=== PATIENT | female | born 1950 | race Caucasian/White ===

== ENCOUNTER 2017-11-19 09:09 | Outpatient (CLI) | payer MEDICARE, OTHER ==
[2017-11-19] MEDS ORDERED: Iopamidol 370 76% 100 ML VIAL ONE (12:49)
--- NOTE | 2017-11-19 12:56 | CT ---
CT ANGIOGRAM CHEST WITH AND WITHOUT CONTRAST: (PULMONARY VEIN MAPPING) DATE: 11/19/2017 HISTORY: A 67-year-old female for electrophysiology planning study. TECHNIQUE: Pre and post IV contrast injection of 100 mL of Isovue-370 scans performed through the heart, with th e field of view limited to the lungs around the heart. Coronal 3D MIP reconstructions. FINDINGS: No consolidation or mass identified in the visualized lung mae. Plate-like density in the lingula , consistent with subsegmental atelectasis or scar. No pleural effusion. Pulmonary veins: Long left common trunk. In addition to superior and inferior right main pulmonary veins, there is a right middle pulmonary vein. No coronary artery atherosclerotic calcification. No cardiomegaly. No ASD or VSD. No thoracic aortic aneurysm or dissection. No thrombus in the left atrial appendage. Bilateral breast implants with heavily calcified rims. No significant mediastinal or hilar lymphaden opathy. IMPRESSION: Pulmonary vein anatomy as described above, including right middle pulmonary vein and long left common trunk. POS: ALMITA
== END 2017-11-19 09:10 | disposition home or self-care (01) ==
LOC: CT 09:09
PROVIDERS: ATTEND Internal Medicine Cardiovascular Disease
DX: I48.91 Unspecified atrial fibrillation (principal)
CPT/HCPCS: 71275; 82565

== ENCOUNTER 2017-11-20 11:45 | Observation (INO) | payer MEDICARE, OTHER ==
[2017-11-20] MEDS ORDERED: Heparin 10,000 UNITS/1 ML VIAL ONE (12:36)
[2017-11-20] MEDS ORDERED: Lidocaine 1% (PF) 30 ML VIAL ONE (12:41)
[2017-11-20 12:46] LABS: Hemoglobin 15.7 g/dL (12.0-16.0); Mean Corpuscular HGB CONC 34.1 g/dL (32.0-36.0); Mean Corpuscular Hemoglobin 32.9 pg (27.0-31.0); Mean Corpuscular Volume 96.3 fl (81.0-99.0); Mean Platelet Volume 7.8 fL (7.4-10.4); Platelet Count 138 thou/uL (130-400); RBC Distribution Width 11.6 % (11.5-14.5); Red Blood Cell (RBC) Count 4.78 mill/uL (4.20-5.40); White Blood Cell (WBC) Count 7.4 thou/uL (4.8-10.8)
[2017-11-20] MEDS ORDERED: Fentanyl 100 MCG/2 ML VIAL ONE (12:46)
[2017-11-20 12:53] LABS: Anion Gap 16 mmol/L (10-20); BUN (Urea Nitrogen) 20 mg/dL (9.8-20.1); Calc. Creatinine Clearance 68 mL/min (70-130); Calcium 9.9 mg/dL (7.8-10.44); Carbon Dioxide 21 mmol/L (23-31); Chloride 106 mmol/L (98-107); Estimated GFR-MDRD 59; Glucose 86 mg/dL (80-115); INR-International Normal Ratio 1.1; PTT 27.8 SEC (22.9-36.1); Potassium 4.2 mmol/L (3.5-5.1); Prothrombin Time 14.3 SEC (12.0-14.7); Sodium 139 mmol/L (136-145)
[2017-11-20 13:08] LABS: Band 2 % (5-11); Lymphocytes 30 % (21-51); MDiff Complete? YES; Monocytes 7 % (0-10); Neutrophil 58 % (42-75); PLT Morphology Comment Appears Adequate; RBC Morphology Normal; Reactive Lymphocytes 3 % (0-10)
[2017-11-20] MEDS ORDERED: Isoproterenol 0.2 MG/1 ML AMP ONE (13:48)
[2017-11-20] MEDS ORDERED: PROPOFOL 200 MG/20 ML VIAL ONE (14:02)
[2017-11-20] MEDS ORDERED: Lidocaine 1% PF 5 ML VIAL ONE (14:02)
[2017-11-20] MEDS ORDERED: Succinylcholine Chloride 20 MG/ML 10 ml SYRINGE FS ONE (14:02)
[2017-11-20] MEDS ORDERED: PHENYLEPHRINE-NS 100 MCG/ML 10 ML SYRINGE ONE (14:02)
[2017-11-20] MEDS ORDERED: Heparin 30,000 units/30 ml VIAL ONE (14:02)
[2017-11-20] MEDS ORDERED: ePHEDrine/0.9% NaCl/PF SYRINGE 50 mg/10 ml ONE (14:02)
[2017-11-20] MEDS ORDERED: Protamine Sulfate 50 MG/5 ML VIAL ONE (14:51)
[2017-11-20] MEDS ORDERED: Furosemide 40 MG/4 ML VIAL ONE (16:07)
[2017-11-20] MEDS ORDERED: Promethazine HCl 25 MG/ML VIAL IM PRN (16:41)
[2017-11-20] MEDS ORDERED: Ondansetron HCl/PF 4 MG/2 ML Vial IVP PRN ×2 (16:41→16:57)
[2017-11-20] MEDS ORDERED: Promethazine HCl 25 MG/ML VIAL SLOW IVP PRN (16:41)
[2017-11-20] MEDS ORDERED: Acetaminophen 325 MG TAB PO PRN (16:57)
[2017-11-20] MEDS ORDERED: Bisacodyl 5 MG TAB PO PRN (16:57)
[2017-11-20] MEDS ORDERED: Mag-Al 1200 mg/1200 mg/30 ML UDCUP PO PRN (16:57)
[2017-11-20] MEDS ORDERED: diphenhydrAMINE 25 MG CAP PO PRN (16:57)
[2017-11-20] MEDS ORDERED: Nitroglycerin 0.4 MG TAB (25 Tab Bottle) SL PRN (16:57)
[2017-11-20] MEDS ORDERED: Bisacodyl 10 MG SUPP PR PRN (16:57)
[2017-11-20] MEDS ORDERED: Temazepam 15 MG CAP PO PRN (16:57)
[2017-11-20] MEDS ORDERED: Ondansetron HCl/PF 4 MG/2 ML Vial ONE (17:22)
[2017-11-20] MEDS ORDERED: Promethazine HCl 25 MG/ML VIAL ONE (17:32)
[2017-11-20 18:15] VITALS: BMI 26.2
[2017-11-20] MEDS: Dronedarone HCl 400 MG TAB PO SCH (20:50)
[2017-11-20] MEDS ORDERED: Rivaroxaban 10 MG TAB PO SCH (21:00)
--- NOTE | 2017-11-20 21:07 | OP ---
DATE OF CONSULTATION: 11/20/2017 PROCEDURE: Comprehensive EP testing with 3D mapping and ablation of atrial fibrillation. CLINICAL INDICATION: Drug refractory and atrial fibrillation. GRADUATE TEACHING ASSISTANT: Rylan Shelton M.D. ASA CLASSIFICATION: IV. ANESTHESIA: General endotracheal anesthesia. Total heparin given 20,000 units. Total protamine giv en 40 mg. ADDITIONAL CARDIAC MEDICATIONS: Isoproterenol 10 mcg per minute infusion. ESTIMATED BLOOD LOSS: Less than 5 mL TOTAL FLUOROSCOPY TIME: Zero. TOTAL RF: 75 minutes. METHODS: After informed consent was obtained, the patient was taken to EP lab in fasting state. Bot h groins were prepped and draped using ultrasound guidance. The right and left femoral veins were ac cessed and wires were inserted into the central venous system. The wires used to place an 11 and 8-F rench sheath in the left groin and two 8-[place] sheath in right groin. The all 8-[place] sheath were then replaced by long sheaths for catheter stability. A 10-[place] echo probe was placed in the left groin advanced of the right atrium and the right ventricle for imaging. A circular ablation catheter placed in right femoral vein advanced up to the right atrium. 3D map was obtained of the right atriu m and the coronary sinus. A 20-pole catheter placed in the left groin and advanced over the coronary sinus. A transseptal catheterization was then performed using biplane imaging through the [employer] system and ultrasound guidance. A 3D map was obtained in the left atrium and very wide antral isol ation of all four pulmonary veins were performed as well as a distal CS isolation, left atrial append age isolation, and roof of the left atrium. The patient then was in an incessant atrial arrhythmia f rom the right atrial appendage. The circular catheter was withdrawn to the right atrium and ablation around the right atrial appendage was performed. This delayed conduction into the appendage, but di d not completely isolated. At the conclusion of the procedure, catheters were withdrawn, sheaths wer e pulled, hemostasis was achieved with a collagen closure. RESULTS: 1. Baseline intervals, HV interval 59 milliseconds. 2. Atrial function. The patient was in sinus rhythm at the beginning of the procedure; however, she went into atrial fibrillation with mechanical manipulation with the catheters. This became incessan t and required a very wide isolation of all four pulmonary veins posterior wall of the left atrium, t he roof the left atrium, distal CS and the left atrial appendage along with debulking of the entire t issue anterior to the otto terminalis and delayed conduction into the right atrial appendage. 3. Ablation detail with total of 75 minutes of RF were delivered with a [employer] open irriga angel ablation catheter. IMPRESSION: 1. Complete isolation of the left atrium including left atrial appendage for treatment of atrial fib rillation. 2. Debulking and extensive ablation of the right atrial appendage and the otto terminalis for delroy tment of atrial fibrillation. RECOMMENDATION: 1. Initiate amiodarone therapy during the healing process. 2. A 23-hour observation.
[2017-11-21] MEDS ORDERED: Colchicine 0.6 MG TAB PO SCH ×2 (00:45→09:00)
[2017-11-21] MEDS ORDERED: Ibuprofen 200 MG TAB PO SCH (00:45)
[2017-11-21] MEDS: Ibuprofen 200 MG TAB PO SCH ×2 (07:07→12:42)
[2017-11-21] MEDS: Dronedarone HCl 400 MG TAB PO SCH (08:25)
[2017-11-21] MEDS ORDERED: Calcium Carbonate + Vit D 1 TAB PO SCH (09:00)
[2017-11-21] MEDS ORDERED: Aspirin 81 mg Enteric Coated Tablet PO SCH (09:00)
[2017-11-21] MEDS ORDERED: Multivit, Therapeutic 1 TAB PO SCH (09:00)
[2017-11-21] MEDS ORDERED: Sodium Chloride 0.9% 250 ML IVPB SCH (10:15)
[2017-11-21 16:06] VITALS: TEMP 98.4
[2017-11-21 16:54] VITALS: BP 104/59
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
[2017-11-22] MEDS ORDERED: Cyanocobalamin (Vitamin B-12) 1,000 MCG TAB PO SCH (09:00)
[2017-11-22] MEDS ORDERED: Magnesium Oxide 250 MG TAB PO SCH (09:00)
--- NOTE | 2017-12-03 22:52 | EKG ---
Test Reason : PREOP Blood Pressure : / mmHG Vent. Rate : 066 BPM Atrial Rate : 066 BPM P-R Int : 160 ms QRS Dur : 080 ms QT Int : 390 ms P-R-T Axes : 064 007 034 degrees QTc Int : 408 ms Normal sinus rhythm with sinus arrhythmia Normal ECG When compared with ECG of 20-JUN-2014 15:54, QT has shortened Confirmed by Anita SMITH ([id number]) on 12/03/2017 10:52:03 PM Referred By: RAMY Confirmed By:Anita SMITH
--- NOTE | 2017-12-03 22:54 | EKG ---
Test Reason : STAT Blood Pressure : / mmHG Vent. Rate : 085 BPM Atrial Rate : 085 BPM P-R Int : 134 ms QRS Dur : 088 ms QT Int : 400 ms P-R-T Axes : 030 010 008 degrees QTc Int : 476 ms Normal sinus rhythm Normal ECG When compared with ECG of 20-NOV-2017 12:38, (Unconfirmed) Nonspecific T wave abnormality now evident in Anterior leads QT has lengthened Confirmed by Anita SMITH ([id number]) on 12/03/2017 10:54:12 PM Referred By: RAMY Confirmed By:Anita SMITH
--- NOTE | 2017-12-03 22:57 | EKG ---
Test Reason : STAT Blood Pressure : / mmHG Vent. Rate : 087 BPM Atrial Rate : 087 BPM P-R Int : 124 ms QRS Dur : 078 ms QT Int : 348 ms P-R-T Axes : -25 029 044 degrees QTc Int : 418 ms Sinus rhythm with Premature atrial complexes T wave abnormality, consider anterolateral ischemia Abnormal ECG When compared with ECG of 20-NOV-2017 16:59, (Unconfirmed) Premature atrial complexes are now Present Nonspecific T wave abnormality no longer evident in Inferior leads T wave inversion now evident in Anterior leads QT has shortened Confirmed by Anita SMITH ([id number]) on 12/03/2017 10:56:57 PM Referred By: RAMY Confirmed By:Anita SMITH
--- NOTE | 2017-12-03 22:58 | EKG ---
Test Reason : Blood Pressure : / mmHG Vent. Rate : 083 BPM Atrial Rate : 083 BPM P-R Int : 134 ms QRS Dur : 080 ms QT Int : 384 ms P-R-T Axes : 090 014 028 degrees QTc Int : 451 ms Sinus rhythm with Premature supraventricular complexes ST elevation, consider early repolarization Borderline ECG When compared with ECG of 21-NOV-2017 00:18, (Unconfirmed) ST elevation now present in Inferior leads ST elevation has replaced ST depression in Anterior leads T wave inversion no longer evident in Anterior leads Confirmed by Anita SMITH ([id number]) on 12/03/2017 10:58:36 PM Referred By: RAMY Confirmed By:Anita SMITH
== END 2017-11-21 17:30 | disposition home or self-care (01) ==
LOC: CCL 11:45 → 2SW 16:45 → CCL 19:20
PROVIDERS: ADMIT Internal Medicine Cardiovascular Disease; ATTEND Internal Medicine Cardiovascular Disease
PROC: 02583ZZ Destruction of Conduction Mechanism, Percutaneous Approach (ICD-10-PCS; principal; 2017-11-20)
DX: I48.1 Persistent atrial fibrillation (principal); Z88.5 Allergy status to narcotic agent; Z88.8 Allergy status to other drugs, medicaments and biological substances
CPT/HCPCS: 76942; 80048; 85025; 85347 ×2; 85610; 85730; 92960; 93005 ×3; 93306; 93613; 93623; 93656; 93662; 96374 ×3; C1731; C1732 ×3; C1759; C1769; G0378; 93010; J0282; J1644; J1940; J2001; J2405; J2550; J2704; J2720; J3010

== ENCOUNTER 2019-07-30 19:07 | Observation (INO) | payer MEDICARE, OTHER ==
[~2019-07-30 19:07] MED LIST: Iopamidol-370 76% 500 ML 1 ML ONE
[2019-07-30 21:40] LABS: Anion Gap 12 mmol/L (10-20); BUN (Urea Nitrogen) 13 mg/dL (9.8-20.1); Calc. Creatinine Clearance 0 mL/min (70-130); Calcium 9.6 mg/dL (7.8-10.44); Carbon Dioxide 28 mmol/L (23-31); Chloride 106 mmol/L (98-107); Estimated GFR-MDRD 68; Glucose 97 mg/dL (80-115); Potassium 3.6 mmol/L (3.5-5.1); Sodium 142 mmol/L (136-145)
[2019-07-30 21:47] LABS: #Eosinphils 0.3 thou/uL (0.0-0.7); #Lymphocytes 1.8 thou/uL (1.20-3.40); #Monocytes 0.8 thou/uL (0.11-0.59); #Neutrophils 4.9 thou/uL (1.40-6.50); %Basophils 0.5 % (0.0-1.0); %Eosinophils 3.2 % (0.0-10.0); %Lymphocytes 23.6 % (21.0-51.0); %Monocytes 9.7 % (0.0-10.0); %Neutrophils 62.9 % (42.0-75.0); Mean Corpuscular HGB CONC 33.3 g/dL (32.0-36.0); Mean Corpuscular Hemoglobin 32.2 pg (27.0-31.0); Mean Corpuscular Volume 96.6 fL (78.0-98.0); Mean Platelet Volume 7.8 fL (7.4-10.4); Platelet Count 131 thou/uL (130-400); RBC Distribution Width 11.2 % (11.5-14.5); Red Blood Cell (RBC) Count 4.36 mill/uL (4.20-5.40); White Blood Cell (WBC) Count 7.8 thou/uL (4.8-10.8)
--- NOTE | 2019-07-30 22:17 | CT ---
CT arteriogram chest with IV contrast and 3-D imaging HISTORY: Chest pain. Dyspnea. COMPARISON: 11/19/2017. FINDINGS: There is good contrast opacification of the pulmonary arteries and thoracic aorta with norm al branching of the great vessels at the aortic arch. Lungs are well-inflated. No pleural fluid, pneumothorax, or mediastinal adenopathy. Bilateral calcified breast implants. Within the partially visualized upper abdomen, hyperdense cysts and small stone at the left kidney are evident. IMPRESSION: No CT evidence of pulmonary embolus.
[2019-07-30] MEDS ORDERED: Metoprolol Tartrate 5 MG/5 ML VIAL ONE (23:01)
[2019-07-31 00:46] LABS: Troponin I Less than 0.010 ng/mL (< 0.028)
[2019-07-31] MEDS ORDERED: Ondansetron ODT 4 MG TAB SL PRN (01:31)
[2019-07-31] MEDS ORDERED: Ondansetron PF 4 MG/2 ML Vial IVP PRN (01:31)
[2019-07-31 02:05] VITALS: BMI 24.3
[2019-07-31] MEDS: Acetaminophen 325 MG TAB PO PRN ×2 (02:26→08:37)
[2019-07-31 04:15] LABS: #Eosinphils 0.2 thou/uL (0.0-0.7); #Lymphocytes 1.9 thou/uL (1.20-3.40); #Monocytes 0.6 thou/uL (0.11-0.59); #Neutrophils 3.4 thou/uL (1.40-6.50); %Basophils 0.7 % (0.0-1.0); %Eosinophils 3.8 % (0.0-10.0); %Lymphocytes 30.2 % (21.0-51.0); %Monocytes 10.1 % (0.0-10.0); %Neutrophils 55.2 % (42.0-75.0); Mean Corpuscular HGB CONC 33.9 g/dL (32.0-36.0); Mean Corpuscular Hemoglobin 32.6 pg (27.0-31.0); Mean Corpuscular Volume 96.1 fL (78.0-98.0); Mean Platelet Volume 8.2 fL (7.4-10.4); Platelet Count 133 thou/uL (130-400); RBC Distribution Width 11.2 % (11.5-14.5); Red Blood Cell (RBC) Count 4.28 mill/uL (4.20-5.40); White Blood Cell (WBC) Count 6.2 thou/uL (4.8-10.8)
[2019-07-31 04:29] LABS: Anion Gap 10 mmol/L (10-20); BUN (Urea Nitrogen) 13 mg/dL (9.8-20.1); Calc. Creatinine Clearance 78 mL/min (70-130); Calcium 9.2 mg/dL (7.8-10.44); Carbon Dioxide 25 mmol/L (23-31); Chloride 107 mmol/L (98-107); Estimated GFR-MDRD 79; Glucose 93 mg/dL (80-115); Potassium 3.7 mmol/L (3.5-5.1); Sodium 138 mmol/L (136-145)
[2019-07-31 04:35] LABS: Troponin I 0.011 ng/mL (< 0.028)
[2019-07-31] MEDS ORDERED: Calcium Carbonate + Vit D 1 TAB PO SCH (09:00)
[2019-07-31] MEDS ORDERED: Apixaban 5 MG TAB PO SCH (09:00)
[2019-07-31] MEDS ORDERED: Non-Formulary Item 1 EACH (Multivit-Min/Iron/Folic/Lutein [Multivitamin Women 50 Plus Tab PO SCH (09:00)
[2019-07-31] MEDS ORDERED: Aspirin 81 mg Enteric Coated Tablet PO SCH (09:00)
[2019-07-31] MEDS ORDERED: Multivitamin W/ Minerals 1 TAB PO SCH (09:00)
[2019-07-31] MEDS ORDERED: Magnesium Oxide 400 MG TAB PO SCH (09:00)
--- NOTE | 2019-07-31 12:19 | CON ---
DATE OF CONSULTATION: 07/31/2019 PRIMARY ENVIRONMENTAL PROTECTION ECONOMIST: Fadi Mcbride MD REASON FOR CONSULT: Tachycardia. HISTORY OF PRESENT ILLNESS: Ms. Guillaume is a patient, who has history of atrial fibrillation ablation, also atrial tachycardia. She recently was taken off flecainide and diltiazem dose was reduced. She re-presented with recurrent palpitations with vague chest discomfort. She is pain-free now. PHYSICAL EXAMINATION: VITAL SIGNS: Blood pressure 137/76, pulse 70. LUNGS: Clear. CARDIAC: Normal S1. Normal S2. ABDOMEN: Soft and nontender. ASSESSMENT: 1. History of atrial fibrillation, previous ablation. 2. Recurrent atrial arrhythmias, off flecainide. PLAN: 1. Resume flecainide. 2. Resume diltiazem. 3. Stress test to be done. If it looks okay, she can go home to follow up as an outpatient with Dr. Mcbride and Dr. Niño. Job ID: [id number]
--- NOTE | 2019-07-31 12:20 | HP ---
CHIEF COMPLAINT: Tiredness and generalized weakness. HISTORY OF PRESENT ILLNESS: The patient is a 68-year-old female, who had some episodes of fast heart beats in the last few days, and she felt very tired, and apparently, she went to her primary care physician, Jennifer Mayorga in [facility], and she had EKG done which showed SVT. The patient was sent to the emergency room for further evaluation. She noticed also quite significant shortness of breath during those episodes when her heart is beating fast. She had some chest pressure during those episodes, but not any obvious chest pain. There was no any nausea or vomiting. There was no any fever or chills. She has a history of atrial fibrillation and ablation done by Dr. Shelton in this hospital. She is well established with Dr. Mcbride, her siderographist and Dr. Niño, her scratcher tender. Apparently, her flecainide was stopped in the last couple of weeks, and her Cardizem dose was decreased from [address] Mcbride. The patient is getting admitted to the hospital for further diagnostic workup and management of her problem. PAST MEDICAL HISTORY: 1. Endometrial cancer. 2. Osteoarthritis. 3. Atrial fibrillation, status post ablation. 4. Left foot cellulitis. PAST SURGICAL HISTORY: 1. Hernia repair. 2. Breast augmentation. 3. Lumbar laminectomy. 4. Hysterectomy. ALLERGIES: 1. CITALOPRAM. 2. HYDROCODONE. 3. MELOXICAM. 4. METOPROLOL. 5. TRAMADOL. THOSE ARE LISTED ALLERGIES, BUT THIS SOUNDS MORE LIKE SIDE EFFECTS OF MEDICATIONS SINCE SHE DEVELOPS HEADACHE AFTER TAKING THEM. CURRENT MEDICATIONS: 1. Aspirin 81 mg once a day. 2. Calcium carbonate 600 mg tablets. The dose is unclear. 3. Vitamin D3 of 10,000 units once a day. 4. Diltiazem extended-release 120 mg once a day. 5. Multivitamin 1 a day. 6. Apixaban 5 mg twice a day. FAMILY HISTORY: Father had throat cancer, and he when he was 69. Mother was 81, and she had complication of Parkinson disease. SOCIAL HISTORY: She denies any cigarette smoking. She drinks socially and does not use any illicit drugs. Surrogate decision maker is Judit Briseno. She has power of erisa attorney over her. REVIEW OF SYSTEMS: Fourteen systems were reviewed, and they were negative except for those symptoms mentioned in HPI. PHYSICAL EXAMINATION: VITAL SIGNS: Her blood pressure is 129/74, temperature is 97.6, respirations 16, pulse 68, O2 saturation is 95% on room air. GENERAL: She is not in any distress during my visit. HEENT: Her head is atraumatic and normocephalic. Eyes are PERRLA. Sclerae are nonicteric. Oral mucosa is moist. NECK: Supple. LUNGS: Clear. HEART: S1 and S2 normal. No S3. No S4. No any murmur. ABDOMEN: Soft, nontender, and nondistended. EXTREMITIES: No clubbing, cyanosis, or edema. NEUROLOGIC: She is alert and oriented x4. There are no any motor or sensory deficits present. Cranial nerves are intact. LABORATORY DATA: Showed white count of 6.2, hemoglobin 14.0, hematocrit 41.1, platelet count is 133,000. Normal chemistry. Two sets of troponin I within normal limits. BNP 76.7. Glucose is 93. IMAGING STUDIES: CTA of the thorax, personally reviewed by me, showed cysts and small stone at the left kidney and bilateral breast implants. Electrocardiogram, personally reviewed by me, showed questionable SVT with ventricular rate of 129 beats per minute. No ischemic changes. IMPRESSION: 1. Paroxysmal tachycardia, unclear whether this is supraventricular tachycardia. 2. Hypertension. 3. History of atrial fibrillation. 4. History of endometrial cancer. 5. Osteoarthritis. PLAN: Admission to observation unit. Condition is fair. Activity is bedrest and bathroom privileges. IV Hep-Lock. Heart-healthy diet. Cardiology consultation with Dr. Maldonado. DVT prophylaxis with SCDs. Continue home medications which include Xarelto, so we are not going to use Lovenox for DVT prophylaxis. Since she had recently echocardiogram done in Dr. Mcbride's office, I am not going to order that. Job ID: [id number]
[2019-07-31] MEDS ORDERED: ADENOSINE 60 MG/20 ML VIAL ONE (14:24)
[2019-07-31] MEDS ORDERED: Flecainide 50 MG TAB PO SCH ×2 (15:00→21:00)
--- NOTE | 2019-07-31 16:09 | NM ---
Radionucleotide stress and rest myocardial perfusion scan with CT attenuation correction and SPECT im aging Left ventricular wall motion evaluation and ejection fraction HISTORY: Chest pain. FINDINGS: Adenosine protocol. Heterogeneous uptake of radiotracer within the left ventricular myocardium. Small amount of breast at tenuation at the anterior wall. No focal perfusion defect or reversibility reliably demonstrated. QGS analysis of gated SPECT images shows no focal wall motion abnormalities. Ejection fraction calcul ated at 72%. IMPRESSION: Normal myocardial perfusion scan. Normal LVEF.
[2019-07-31 16:13] VITALS: BP 129/73; TEMP 97.6
--- NOTE | 2019-08-02 10:59 | DIS ---
DATE OF ADMISSION: 07/31/2019 DATE OF DISCHARGE: 07/31/2019 FINAL DIAGNOSES AT THE TIME OF DISCHARGE: 1. Recurrent atrial arrhythmias, off flecainide. 2. History of atrial fibrillation with history of previous ablation. 3. Hypertension. 4. History of endometrial cancer. 5. Osteoarthritis. CONSULTANTS: Dr. Carolyn Maldonado, Cardiology Service. HOSPITAL COURSE: The patient is a 68-year-old female who has significant cardiac past medical history for atrial fibrillation and ablation and recently, her loan funder lowered a Cardizem dose and stopped her flecainide, and she started having some palpitations and fast heartbeats along with some shortness of breath. She presented to her primary care physician office where she was found to be in SVT. She was sent to the emergency room for further evaluation. During emergency room visit, her white count was 6.2, hemoglobin was 14.0, hematocrit 41.1, and platelet count 133,000. Chemistry was normal. Two sets of troponins I were within normal limits. BNP was 76.7, and glucose was 93. Her electrocardiogram showed questionable SVT with ventricular rate of 129 beats per minute without any ischemic changes. The patient got admitted to observation unit. She was seen by Dr. Maldonado for Cardiology consultation who recommended a stress test, which was done, and it did not show any abnormalities. Her LVEF was estimated at 72%. There were no any wall motion abnormalities or ischemic areas of concern. She was started on flecainide, and she was cleared by loan funder to be released home. Her vital signs; blood pressure is 129/73, pulse is 73, temperature is 97.6, respirations 17, and O2 saturation is 97% on room air. She was seen and examined before she is discharged. She feels good. DISPOSITION: Home. ACTIVITY: As tolerated. DIET: Low-salt diet. MEDICATIONS: At the time of discharge; 1. Diltiazem 60 mg twice a day. 2. Eliquis 5 mg twice a day. 3. Flecainide 50 mg twice a day. 4. Aspirin 81 mg once a day. 5. Multivitamin once a day. 6. Magnesium 800 mg once a day. 7. Calcium carbonate/vitamin D3 two tablets every morning. FOLLOWUP: She is going to follow up with Dr. Mcbride, her primary loan funder, and Dr. Niño , her rebrander. She will call those two offices and to set up followup appointment. Time spent on this discharge is less than 30 minutes. Job ID: [id number]
== END 2019-07-31 18:32 | disposition home or self-care (01) ==
LOC: ERS 19:07 → 2SW 07-31 01:07
PROVIDERS: ADMIT Internal Medicine; ATTEND Internal Medicine
DX: I47.9 Paroxysmal tachycardia, unspecified (principal); I10 Essential (primary) hypertension; R53.1 Weakness; R06.02 Shortness of breath; M19.90 Unspecified osteoarthritis, unspecified site; I48.91 Unspecified atrial fibrillation; Z79.01 Long term (current) use of anticoagulants; Z79.82 Long term (current) use of aspirin; Z79.899 Other long term (current) drug therapy; Z88.5 Allergy status to narcotic agent; Z88.6 Allergy status to analgesic agent; Z88.8 Allergy status to other drugs, medicaments and biological substances
CPT/HCPCS: 71275; 78452; 80048 ×2; 83735; 83880; 84484 ×3; 85025 ×2; 93005; 93017; 96374; 99285; A9500; G0378 ×2; 36415; J0153; Q9967

== ENCOUNTER 2020-11-21 17:30 | Outpatient (CLI) | payer MEDICARE, OTHER | END 2020-11-21 17:31 | disposition home or self-care (01) | LOC: SLEEPLAB 17:30 | PROVIDERS: ATTEND Family Medicine | DX: G47.33 Obstructive sleep apnea (adult) (pediatric) (principal); R09.89 Other specified symptoms and signs involving the circulatory and respiratory systems; R51.9 Headache, unspecified; R06.83 Snoring; I48.91 Unspecified atrial fibrillation; I10 Essential (primary) hypertension | CPT/HCPCS: 95806 ==

== ENCOUNTER 2021-01-31 08:10 | Day surgery (SDC) | payer MEDICARE, OTHER ==
[2021-01-30 08:40] VITALS: BMI 26.6
[2021-01-31 09:04] LABS: Hemoglobin 15.4 g/dL (12.0-16.0); Mean Corpuscular HGB CONC 34.6 g/dL (32.0-36.0); Mean Corpuscular Hemoglobin 33.9 pg (27.0-31.0); Mean Platelet Volume 8.2 fL (7.4-10.4); Platelet Count 152 thou/uL (130-400); RBC Distribution Width 11.5 % (11.5-14.5); Red Blood Cell (RBC) Count 4.54 mill/uL (4.20-5.40); White Blood Cell (WBC) Count 7.3 thou/uL (4.8-10.8)
[2021-01-31 09:15] LABS: INR-International Normal Ratio 1.3; PTT 32.3 sec (22.9-36.1); Prothrombin Time 16.4 sec (12.0-14.7)
[2021-01-31 09:23] LABS: Anion Gap 11 mmol/L (10-20); BUN (Urea Nitrogen) 17 mg/dL (9.8-20.1); Calc. Creatinine Clearance 70 mL/min (70-130); Calcium 9.8 mg/dL (7.8-10.44); Carbon Dioxide 30 mmol/L (23-31); Chloride 105 mmol/L (98-107); Glucose 101 mg/dL (83-110); Potassium 4.3 mmol/L (3.5-5.1); Sodium 142 mmol/L (136-145)
[2021-01-31] MEDS ORDERED: PROPOFOL 20 ML ONE (09:25)
== END 2021-01-31 11:35 | disposition home or self-care (01) ==
LOC: CCL 08:10
PROVIDERS: ATTEND Internal Medicine Cardiovascular Disease
PROC: 5A2204Z Restoration of Cardiac Rhythm, Single (ICD-10-PCS; principal; 2021-01-31)
DX: I48.4 Atypical atrial flutter (principal); I48.19 Other persistent atrial fibrillation; I10 Essential (primary) hypertension; Z79.01 Long term (current) use of anticoagulants; Z79.82 Long term (current) use of aspirin; Z79.899 Other long term (current) drug therapy; Z88.1 Allergy status to other antibiotic agents; Z88.5 Allergy status to narcotic agent; Z88.8 Allergy status to other drugs, medicaments and biological substances
CPT/HCPCS: 80048; 85027; 85610; 85730; 92960; 93005; 93010; J2704

== ENCOUNTER 2021-04-11 06:12 | Observation (INO) | payer MEDICARE, OTHER ==
[2021-04-11] MEDS ORDERED: Heparin 10,000 UNITS/ 10 ML VIAL ONE (06:32)
[2021-04-11] MEDS ORDERED: Isoproterenol 0.2 MG/1 ML AMP ONE (06:33)
[2021-04-11] MEDS ORDERED: SUGAMMADEX SODIUM 200 MG/2 ML VIAL ONE (07:14)
[2021-04-11] MEDS ORDERED: Fentanyl 100 MCG/2 ML VIAL ONE ×2 (07:14→12:29)
[2021-04-11] MEDS ORDERED: diphenhydrAMINE 50 MG/ML VIAL ONE (07:30)
[2021-04-11] MEDS ORDERED: PROPOFOL 200 MG/20 ML VIAL ONE (07:30)
[2021-04-11] MEDS ORDERED: Dexamethasone 20 MG/5 ML VIAL ONE (07:30)
[2021-04-11] MEDS ORDERED: PHENYLEPHRINE-NS 100 MCG/ML 10 ML SYRINGE ONE ×2 (07:30→11:06)
[2021-04-11] MEDS ORDERED: Rocuronium Bromide 10 MG/ML (10ML VIAL) ONE (07:30)
[2021-04-11] MEDS ORDERED: Ondansetron PF 4 MG/2 ML Vial ONE (07:30)
[2021-04-11] MEDS ORDERED: Glycopyrrolate 0.2 MG/ML 5 ML SYRINGE ONE (07:30)
[2021-04-11] MEDS ORDERED: Lidocaine 1% PF 5 ML VIAL ONE (07:30)
[2021-04-11] MEDS ORDERED: ePHEDrine 50 MG/ML VIAL ONE (07:30)
[2021-04-11] MEDS ORDERED: Ondansetron HCl/PF 4 MG/2 ML Vial IVP PRN (08:13)
[2021-04-11] MEDS ORDERED: Promethazine HCl 25 MG/ML VIAL IM PRN (08:13)
[2021-04-11] MEDS ORDERED: Promethazine HCl 25 MG/ML VIAL IVPB PRN (08:13)
[2021-04-11] MEDS ORDERED: Meperidine HCl/PF 25 MG/ML VIAL SLOW IVP PRN (08:18)
[2021-04-11] MEDS ORDERED: Heparin 25,000 units/D5W 500 ML ONE (09:41)
[2021-04-11] MEDS ORDERED: Protamine Sulfate 50 MG/5 ML VIAL ONE (10:17)
[2021-04-11] MEDS ORDERED: Ketorolac Tromethamine 30 MG/ML VIAL IVP PRN ×2 (12:41→14:46)
[2021-04-11] MEDS ORDERED: Ketorolac Tromethamine 30 MG/ML VIAL ONE (13:58)
[2021-04-11] MEDS ORDERED: Potassium Chloride 20 MEQ TAB PO PRN (14:46)
[2021-04-11] MEDS ORDERED: Furosemide 40 MG TAB PO PRN (14:46)
[2021-04-11] MEDS: Sucralfate 1 GM TAB PO SCH ×2 (16:57→22:26)
[2021-04-11 17:00] VITALS: BMI 28.6
[2021-04-11] MEDS: Baclofen 10 MG TAB PO SCH (22:24)
[2021-04-11] MEDS: Apixaban 5 MG TAB PO SCH (22:24)
[2021-04-12] MEDS ORDERED: Aspirin 81 mg Enteric Coated Tablet PO SCH (09:00)
[2021-04-12] MEDS ORDERED: Calcium Carbonate 600 MG + Vit D TAB PO SCH (09:00)
[2021-04-12] MEDS ORDERED: Magnesium Oxide 400 MG TAB PO SCH (09:00)
[2021-04-12] MEDS ORDERED: Multivitamin W/ Minerals 1 TAB PO SCH (09:00)
[2021-04-12] MEDS: Sucralfate 1 GM TAB PO SCH (10:01)
[2021-04-12] MEDS: Apixaban 5 MG TAB PO SCH (10:02)
[2021-04-12] MEDS: Baclofen 10 MG TAB PO SCH (10:03)
[2021-04-12 12:17] VITALS: BP 132/69; TEMP 97.8
== END 2021-04-12 13:04 | disposition home or self-care (01) ==
LOC: CCL 06:12 → 2SW 06:27
PROVIDERS: ADMIT Internal Medicine Cardiovascular Disease; ATTEND Internal Medicine Cardiovascular Disease
PROC: 02583ZZ Destruction of Conduction Mechanism, Percutaneous Approach (ICD-10-PCS; principal; 2021-04-11)
PROC: 02K83ZZ Map Conduction Mechanism, Percutaneous Approach (ICD-10-PCS; 2021-04-11)
PROC: 4A023FZ Measurement of Cardiac Rhythm, Percutaneous Approach (ICD-10-PCS; 2021-04-11)
PROC: 4A0234Z Measurement of Cardiac Electrical Activity, Percutaneous Approach (ICD-10-PCS; 2021-04-11)
DX: I48.19 Other persistent atrial fibrillation (principal); I48.4 Atypical atrial flutter; Q20.8 Other congenital malformations of cardiac chambers and connections; I08.3 Combined rheumatic disorders of mitral, aortic and tricuspid valves; I10 Essential (primary) hypertension; M19.90 Unspecified osteoarthritis, unspecified site; Z79.01 Long term (current) use of anticoagulants; Z79.82 Long term (current) use of aspirin; Z79.899 Other long term (current) drug therapy; Z88.5 Allergy status to narcotic agent; Z88.6 Allergy status to analgesic agent; Z88.8 Allergy status to other drugs, medicaments and biological substances; Z98.890 Other specified postprocedural states
CPT/HCPCS: 76942; 85347 ×2; 93005 ×2; 93613; 93623; 93655; 93656; 93657; 93662; C1732 ×2; C1759; C1884; 93010; 96374; G0378; J1100; J1200; J1644; J1885; J2405; J2704; J2720; J3010; J3490

== ENCOUNTER 2021-09-17 11:35 | Outpatient (CLI) | payer MEDICARE, OTHER ==
[2021-09-17 13:05] LABS: Hemoglobin 13.6 g/dL (12.0-15.5); Mean Corpuscular HGB CONC 32.2 g/dL (32.0-36.0); Mean Corpuscular Hemoglobin 30.7 pg (27.0-33.0); Mean Corpuscular Volume 95.3 fl (81.6-98.3); Platelet Count 180 10x3/uL (150-450); RBC Distribution Width 13.1 % (11.5-14.5); Red Blood Cell (RBC) Count 4.43 10x6/uL (3.90-5.03); White Blood Cell (WBC) Count 7.3 10x3/uL (3.5-10.5)
[2021-09-17 13:16] LABS: Anion Gap 15 mmol/L (10-20); BUN (Urea Nitrogen) 13 mg/dL (9.8-20.1); Calc. Creatinine Clearance 0 mL/min (70-130); Calcium 10.3 mg/dL (7.8-10.44); Carbon Dioxide 29 mmol/L (23-31); Chloride 103 mmol/L (98-107); Glucose 95 mg/dL (83-110); Potassium 4.6 mmol/L (3.5-5.1); Sodium 142 mmol/L (136-145)
[2021-09-18 11:50] LABS: SARS-CoV-2 PCR by NAA Not Detected (NotDetected)
== END 2021-09-17 11:36 | disposition home or self-care (01) ==
LOC: LABBT 11:35
PROVIDERS: ATTEND Plastic Surgery
DX: Z01.818 Encounter for other preprocedural examination (principal); Z20.822 Contact with and (suspected) exposure to COVID-19
CPT/HCPCS: 80048; 85027; 93005; U0003; U0005; 93010

== ENCOUNTER 2021-09-21 09:32 | Day surgery (SDC) | payer MEDICARE, OTHER ==
[2021-09-13 10:29] VITALS: BMI 25.2
[2021-09-21] MEDS ORDERED: Famotidine/PF 20 mg/2ml Vial ONE (10:37)
[2021-09-21] MEDS ORDERED: Fentanyl 100 MCG/2 ML VIAL ONE (10:37)
[2021-09-21] MEDS ORDERED: Gentamicin 80 MG/2 ML VIAL ONE (10:58)
[2021-09-21] MEDS ORDERED: EPINEPHrine 1 MG/ML AMP ONE (10:58)
[2021-09-21] MEDS ORDERED: Bupivacaine 0.25% HCL 30 ML VIAL ONE ×2 (10:58→10:59)
[2021-09-21] MEDS ORDERED: Neomycin-Polymyxin 1 ML AMP ONE (10:59)
[2021-09-21] MEDS ORDERED: SUGAMMADEX SODIUM 200 MG/2 ML VIAL ONE (11:00)
[2021-09-21] MEDS ORDERED: Dexmedetomidine 200 MCG/2 ML VIAL ONE (11:00)
[2021-09-21] MEDS ORDERED: ceFAZolin 2 GM/Dextrose 50 ML IVPB ONE (11:41)
[2021-09-21] MEDS ORDERED: Midazolam HCl 2 mg/2 ml Vial ONE (11:43)
[2021-09-21] MEDS ORDERED: Lidocaine 1% PF 5 ML VIAL ONE (11:51)
[2021-09-21] MEDS ORDERED: Rocuronium Bromide 10 MG/ML (10ML VIAL) ONE (11:51)
[2021-09-21] MEDS ORDERED: PROPOFOL 200 MG/20 ML VIAL ONE (11:51)
[2021-09-21] MEDS ORDERED: Ondansetron PF 4 MG/2 ML Vial ONE (11:51)
[2021-09-21] MEDS ORDERED: ePHEDrine 50 MG/ML VIAL ONE (11:51)
[2021-09-21] MEDS ORDERED: Metoclopramide HCl 10 MG/2 ML VIAL ONE (11:51)
[2021-09-21] MEDS ORDERED: PHENYLEPHRINE-NS 100 MCG/ML 10 ML SYRINGE ONE (11:51)
[2021-09-21] MEDS ORDERED: Tranexamic Acid 1,000 MG/10 ML VIAL ONE ×2 (12:11→15:20)
[2021-09-21] MEDS ORDERED: Phenylephrine 10 MG/ML VIAL ONE (14:26)
== END 2021-09-21 20:10 | disposition home or self-care (01) ==
LOC: SDC 09:32
PROVIDERS: ATTEND Plastic Surgery
PROC: 0HPU0JZ Removal of Synthetic Substitute from Left Breast, Open Approach (ICD-10-PCS; principal; 2021-09-21)
PROC: 0HPT0JZ Removal of Synthetic Substitute from Right Breast, Open Approach (ICD-10-PCS; 2021-09-21)
DX: T85.44XA Capsular contracture of breast implant, initial encounter (principal); T85.49XA Other mechanical complication of breast prosthesis and implant, initial encounter; I10 Essential (primary) hypertension; I48.91 Unspecified atrial fibrillation; Z79.01 Long term (current) use of anticoagulants; Z79.82 Long term (current) use of aspirin; Z79.899 Other long term (current) drug therapy; Z88.5 Allergy status to narcotic agent; Z88.6 Allergy status to analgesic agent; Z88.8 Allergy status to other drugs, medicaments and biological substances; Z85.42 Personal history of malignant neoplasm of other parts of uterus
CPT/HCPCS: J0171; J0690; J1580; J2250; J2370; J3010; J3370; S0020; S0028

== ENCOUNTER 2022-02-06 12:16 | Outpatient (CLI) | payer MEDICARE, OTHER | END 2022-02-06 12:17 | disposition home or self-care (01) | LOC: LABBT 12:16 | PROVIDERS: ATTEND Internal Medicine Cardiovascular Disease | DX: Z01.810 Encounter for preprocedural cardiovascular examination (principal); Z51.81 Encounter for therapeutic drug level monitoring; Z79.01 Long term (current) use of anticoagulants; Z79.891 Long term (current) use of opiate analgesic; Z79.899 Other long term (current) drug therapy; I48.19 Other persistent atrial fibrillation | CPT/HCPCS: 71275; 82565; 93005; 93010 ==

== ENCOUNTER 2022-02-06 13:30 | Inpatient (IN) | payer MEDICARE, OTHER ==
[2022-02-06 14:14] VITALS: BMI 23.8
[2022-02-06 14:39] LABS: Bilirubin Neg (Negative); Blood, Urine 50 (Negative); Clarity Clear (Clear); Glucose, Urine (Dipstick) Normal (Negative); Ketone, Urine Negative (Negative); Leukocyte Negative (Negative); Nitrite Negative (Negative); Protein, Urine (Dipstick) Negative (Neg-Trace); Urobilinogen Normal mg/dL (Less than 2)
[2022-02-06 14:48] LABS: Hemoglobin 13.4 g/dL (12.0-15.5); Mean Corpuscular HGB CONC 32.3 g/dL (32.0-36.0); Mean Corpuscular Hemoglobin 29.1 pg (27.0-33.0); Mean Platelet Volume 10.8 fl (7.4-10.4); Platelet Count 187 10x3/uL (150-450); RBC Distribution Width 14.6 % (11.5-14.5); Red Blood Cell (RBC) Count 4.61 10x6/uL (3.90-5.03); White Blood Cell (WBC) Count 7.1 10x3/uL (3.5-10.5)
[2022-02-06 14:57] LABS: PTT 28.7 sec (22.0-33.0)
[2022-02-06 15:06] LABS: ALT (SGPT) 16 U/L (8-55); AST (SGOT) 25 U/L (5-34); Albumin 4.2 g/dL (3.4-4.8); Alkaline Phosphatase 122 U/L (40-110); Anion Gap 15 mmol/L (10-20); BUN (Urea Nitrogen) 19 mg/dL (9.8-20.1); Bilirubin, Total 0.6 mg/dL (0.2-1.2); Calc. Creatinine Clearance 0 mL/min (70-130); Calcium 10.1 mg/dL (7.8-10.44); Carbon Dioxide 28 mmol/L (23-31); Chloride 104 mmol/L (98-107); Globulin 3.5 g/dL (2.4-3.5); Glucose 72 mg/dL (83-110); Potassium 4.6 mmol/L (3.5-5.1); Protein, Total 7.7 g/dL (5.8-8.1); Sodium 142 mmol/L (136-145)
[2022-02-11] MEDS ORDERED: Iopamidol 370 76% 100 ML VIAL ONE (08:00)
[2022-02-11] MEDS ORDERED: fentaNYL Citrate/PF 100 MCG/2 ML SYRINGE ONE ×2 (10:16→13:36)
[2022-02-11] MEDS ORDERED: SUGAMMADEX SODIUM 200 MG/2 ML VIAL ONE (10:17)
[2022-02-11] MEDS ORDERED: Famotidine/PF 20 mg/2ml Vial ONE (10:17)
[2022-02-11] MEDS ORDERED: CEFAZOLIN 1 GM VIAL ONE (10:19)
[2022-02-11] MEDS ORDERED: Heparin 10,000 UNITS/ 10 ML VIAL ONE (10:19)
[2022-02-11] MEDS ORDERED: Protamine Sulfate 50 MG/5 ML VIAL ONE (10:19)
[2022-02-11] MEDS ORDERED: Metoclopramide HCl 10 MG/2 ML VIAL ONE (11:26)
[2022-02-11] MEDS ORDERED: Lidocaine 1% PF 5 ML VIAL ONE (11:26)
[2022-02-11] MEDS ORDERED: Phenylephrine 10 MG/ML VIAL ONE (11:26)
[2022-02-11] MEDS ORDERED: Ondansetron PF 4 MG/2 ML Vial ONE (11:26)
[2022-02-11] MEDS ORDERED: Rocuronium Bromide 10 MG/ML (10ML VIAL) ONE (11:26)
[2022-02-11] MEDS ORDERED: PROPOFOL 200 MG/20 ML VIAL ONE (11:26)
[2022-02-11] MEDS ORDERED: Meperidine HCl/PF 25 MG/ML VIAL ONE (15:05)
== END 2022-02-11 16:40 | disposition home or self-care (01) | DRG 274 ==
LOC: SURG A 02-11 08:18
PROVIDERS: ADMIT Internal Medicine Cardiovascular Disease; ATTEND Internal Medicine Cardiovascular Disease
PROC: 02L73DK Occlusion of Left Atrial Appendage with Intraluminal Device, Percutaneous Approach (ICD-10-PCS; principal; 2022-02-11)
PROC: B24BZZ4 Ultrasonography of Heart with Aorta, Transesophageal (ICD-10-PCS; 2022-02-11)
DX: I48.19 Other persistent atrial fibrillation (principal); Z00.6 Encounter for examination for normal comparison and control in clinical research program; I08.1 Rheumatic disorders of both mitral and tricuspid valves; I10 Essential (primary) hypertension; Z20.822 Contact with and (suspected) exposure to COVID-19; Z88.6 Allergy status to analgesic agent; Z88.5 Allergy status to narcotic agent; Z88.8 Allergy status to other drugs, medicaments and biological substances; Z98.890 Other specified postprocedural states; Z90.710 Acquired absence of both cervix and uterus
CPT/HCPCS: 33340; 36430; 80053; 81003; 85027; 85347; 85610; 85730; 86850; 86900; 86901; 93306; 93312; C1759; C1760; J0690; J1644; J2175; J2370; J2405; J2704; J2720; J2765; Q9967; S0028; U0003; U0005

== ENCOUNTER 2022-04-03 10:54 | Outpatient (CLI) | payer MEDICARE, OTHER ==
[2022-04-03 11:44] LABS: Hemoglobin 12.8 g/dL (12.0-15.5); Mean Corpuscular HGB CONC 32.8 g/dL (32.0-36.0); Mean Corpuscular Hemoglobin 29.4 pg (27.0-33.0); Mean Corpuscular Volume 89.7 fl (81.6-98.3); Mean Platelet Volume 10.6 fl (7.4-10.4); Platelet Count 173 10x3/uL (150-450); RBC Distribution Width 14.3 % (11.5-14.5); Red Blood Cell (RBC) Count 4.35 10x6/uL (3.90-5.03); White Blood Cell (WBC) Count 6.3 10x3/uL (3.5-10.5)
[2022-04-03 12:06] LABS: Anion Gap 12 mmol/L (10-20); BUN (Urea Nitrogen) 22 mg/dL (9.8-20.1); Calc. Creatinine Clearance 0 mL/min (70-130); Calcium 9.8 mg/dL (7.8-10.44); Carbon Dioxide 28 mmol/L (23-31); Chloride 103 mmol/L (98-107); Estimated GFR 69; Glucose 88 mg/dL (83-110); Potassium 4.2 mmol/L (3.5-5.1); Sodium 139 mmol/L (136-145)
== END 2022-04-03 10:55 | disposition home or self-care (01) ==
LOC: LABBT 10:54
PROVIDERS: ATTEND Internal Medicine Cardiovascular Disease
DX: Z01.812 Encounter for preprocedural laboratory examination (principal); Z20.822 Contact with and (suspected) exposure to COVID-19
CPT/HCPCS: 80048; 85027; 87811

== ENCOUNTER 2022-06-04 12:42 | Outpatient (CLI) | payer MEDICARE, OTHER ==
[2022-06-04 14:25] LABS: Hemoglobin 13.8 g/dL (12.0-15.5); Mean Corpuscular HGB CONC 33.5 g/dL (32.0-36.0); Mean Corpuscular Hemoglobin 29.9 pg (27.0-33.0); Mean Corpuscular Volume 89.4 fl (81.6-98.3); Mean Platelet Volume 10.7 fl (7.4-10.4); Platelet Count 187 10x3/uL (150-450); RBC Distribution Width 14.1 % (11.5-14.5); Red Blood Cell (RBC) Count 4.61 10x6/uL (3.90-5.03); White Blood Cell (WBC) Count 6.6 10x3/uL (3.5-10.5)
[2022-06-04 14:33] LABS: PTT 25.2 sec (22.0-33.0); Prothrombin Time 10.6 sec (9.5-12.1)
[2022-06-04 15:00] LABS: Sodium 140 mmol/L (136-145)
[2022-06-04 15:01] LABS: ALT (SGPT) 20 U/L (8-55); AST (SGOT) 23 U/L (5-34); Albumin 4.2 g/dL (3.4-4.8); Alkaline Phosphatase 114 U/L (40-110); Anion Gap 15 mmol/L (10-20); BUN (Urea Nitrogen) 28 mg/dL (9.8-20.1); Bilirubin, Direct 0.3 mg/dL (0.1-0.3); Bilirubin, Total 0.6 mg/dL (0.2-1.2); Calc. Creatinine Clearance 0 mL/min (70-130); Calcium 9.7 mg/dL (7.8-10.44); Carbon Dioxide 25 mmol/L (23-31); Chloride 104 mmol/L (98-107); Estimated GFR 54; Glucose 80 mg/dL (83-110); Protein, Total 7.3 g/dL (5.8-8.1)
== END 2022-06-04 12:43 | disposition home or self-care (01) ==
LOC: LABBT 12:42
PROVIDERS: ATTEND Internal Medicine Cardiovascular Disease
DX: Z01.818 Encounter for other preprocedural examination (principal); I48.0 Paroxysmal atrial fibrillation; Z20.822 Contact with and (suspected) exposure to COVID-19
CPT/HCPCS: 71046; 80048; 80076; 85027; 85610; 85730; 87811

== ENCOUNTER 2022-06-07 10:48 | Day surgery (SDC) | payer MEDICARE, OTHER ==
[2022-06-06 09:48] VITALS: BMI 23.8
== END 2022-06-07 13:35 | disposition home or self-care (01) ==
LOC: SDC 10:48
PROVIDERS: ATTEND Internal Medicine Cardiovascular Disease
DX: I48.92 Unspecified atrial flutter (principal); Z53.8 Procedure and treatment not carried out for other reasons; Z79.02 Long term (current) use of antithrombotics/antiplatelets; Z79.82 Long term (current) use of aspirin; Z79.899 Other long term (current) drug therapy; Z88.5 Allergy status to narcotic agent; Z88.8 Allergy status to other drugs, medicaments and biological substances; Z95.818 Presence of other cardiac implants and grafts; Z98.890 Other specified postprocedural states
CPT/HCPCS: 93005; 93010

== ENCOUNTER 2022-10-23 09:25 | Outpatient (CLI) | payer MEDICARE, OTHER | END 2022-10-23 09:26 | disposition home or self-care (01) | LOC: RAD 09:25 | PROVIDERS: ATTEND Internal Medicine Critical Care Medicine | DX: R06.00 Dyspnea, unspecified (principal) | CPT/HCPCS: 71046 ==

== ENCOUNTER 2023-01-02 13:51 | Outpatient (CLI) | payer MEDICARE, OTHER | END 2023-01-02 13:52 | disposition home or self-care (01) | LOC: CT 13:51 | PROVIDERS: ATTEND Internal Medicine Critical Care Medicine | DX: J84.9 Interstitial pulmonary disease, unspecified (principal); R91.8 Other nonspecific abnormal finding of lung field; N28.9 Disorder of kidney and ureter, unspecified | CPT/HCPCS: 71250 ==

== ENCOUNTER 2023-04-10 16:47 | Observation (INO) | payer MEDICARE, OTHER ==
[2023-04-10] MEDS ORDERED: Morphine 2 MG/ML VIAL ONE ×2 (17:56→18:15)
[2023-04-10 18:08] LABS: #Eosinphils 0.2 thou/uL (0.0-0.7); #Monocytes 0.9 thou/uL (0.11-0.59); #Neutrophils 3.9 thou/uL (1.40-6.50); %Basophils 0.6 % (0.0-1.0); %Eosinophils 2.5 % (0.0-10.0); %Lymphocytes 27.1 % (21.0-51.0); %Monocytes 12.4 % (0.0-10.0); %Neutrophils 57.3 % (42.0-75.0); Hematocrit 41.4 % (36.0-47.0); Hemoglobin 13.3 g/dL (12.0-16.0); Mean Corpuscular HGB CONC 32.1 g/dL (32.0-36.0); Mean Corpuscular Hemoglobin 29.2 pg (27.0-31.0); Mean Platelet Volume 10.1 fL (7.4-10.4); Platelet Count 159 10x3/uL (130-400); RBC Distribution Width 16.1 % (11.5-14.5); Red Blood Cell (RBC) Count 4.55 mill/uL (4.20-5.40); White Blood Cell (WBC) Count 6.9 10x3/uL (4.8-10.8)
[2023-04-10 18:33] LABS: ALT (SGPT) 45 U/L (8-55); AST (SGOT) 38 U/L (5-34); Albumin 4.2 g/dL (3.4-4.8); Alkaline Phosphatase 123 U/L (40-110); Anion Gap 11 mmol/L (10-20); BUN (Urea Nitrogen) 20 mg/dL (9.8-20.1); Bilirubin, Total 0.6 mg/dL (0.2-1.2); Calc. Creatinine Clearance 0 mL/min (70-130); Calcium 9.9 mg/dL (7.8-10.44); Carbon Dioxide 29 mmol/L (23-31); Chloride 102 mmol/L (98-107); Estimated GFR 58; Globulin 3.4 g/dL (2.4-3.5); Glucose 88 mg/dL (83-110); Lipase 13 U/L (8-78); Potassium 3.6 mmol/L (3.5-5.1); Protein, Total 7.6 g/dL (5.8-8.1); Sodium 138 mmol/L (136-145)
[2023-04-10] MEDS ORDERED: Piperacillin/Tazobactam 3.375 GM VIAL ONE (19:30)
[2023-04-10] MEDS ORDERED: Dextrose 5% in Water 1,000 ML IV PRN (19:37)
[2023-04-10] MEDS ORDERED: Ondansetron PF 4 MG/2 ML Vial IVP PRN (19:37)
[2023-04-10] MEDS ORDERED: Ipratropium/Albuterol 3 ML NEB NEB PRN (19:37)
[2023-04-10] MEDS ORDERED: Dextrose 50% Abboject 50 ML SYRINGE SLOW IVP PRN (19:37)
[2023-04-10] MEDS ORDERED: Glucagon 1 MG/ML KIT IM PRN (19:37)
[2023-04-10] MEDS ORDERED: Flecainide Acetate 100 MG TAB PO SCH (19:45)
[2023-04-10] MEDS: Acetaminophen 500 MG TAB PO SCH (23:55)
[2023-04-10] MEDS: Sodium Chloride 0.9% 1,000 ML IV SCH (23:55)
[2023-04-10] MEDS: Famotidine/PF 20 mg/2ml Vial SLOW IVP SCH (23:56)
[2023-04-11] MEDS: Morphine 2 MG/ML VIAL SLOW IVP PRN ×2 (01:02→10:31)
[2023-04-11] MEDS: Acetaminophen 500 MG TAB PO SCH ×2 (01:02→15:35)
[2023-04-11 03:28] VITALS: BMI 24.2
[2023-04-11] MEDS: Sodium Chloride 0.9% 1,000 ML IV SCH ×2 (05:20→15:35)
[2023-04-11 05:29] LABS: #Eosinphils 0.2 thou/uL (0.0-0.7); #Monocytes 0.5 thou/uL (0.11-0.59); #Neutrophils 2.3 thou/uL (1.40-6.50); %Basophils 0.8 % (0.0-1.0); %Eosinophils 4.6 % (0.0-10.0); %Lymphocytes 33.9 % (21.0-51.0); %Monocytes 11.2 % (0.0-10.0); %Neutrophils 49.3 % (42.0-75.0); Hemoglobin 12.2 g/dL (12.0-16.0); Mean Corpuscular HGB CONC 31.3 g/dL (32.0-36.0); Mean Corpuscular Hemoglobin 29.6 pg (27.0-31.0); Mean Platelet Volume 9.9 fL (7.4-10.4); Platelet Count 121 10x3/uL (130-400); RBC Distribution Width 16.1 % (11.5-14.5); Red Blood Cell (RBC) Count 4.12 mill/uL (4.20-5.40); White Blood Cell (WBC) Count 4.8 10x3/uL (4.8-10.8)
[2023-04-11] MEDS ORDERED: Sevoflurane 250 ML INH ANEST BOTTLE ONE (05:34)
[2023-04-11 05:41] LABS: Mean Corpuscular Volume 94.7 fl (78.0-98.0)
[2023-04-11 05:51] LABS: Anion Gap 10 mmol/L (10-20); BUN (Urea Nitrogen) 11 mg/dL (9.8-20.1); Calc. Creatinine Clearance 82 mL/min (70-130); Calcium 8.6 mg/dL (7.8-10.44); Carbon Dioxide 27 mmol/L (23-31); Chloride 106 mmol/L (98-107); Estimated GFR 92; Glucose 84 mg/dL (83-110); Potassium 3.6 mmol/L (3.5-5.1); Sodium 139 mmol/L (136-145)
[2023-04-11 05:53] LABS: ALT (SGPT) 36 U/L (8-55); AST (SGOT) 32 U/L (5-34); Albumin 3.3 g/dL (3.4-4.8); Alkaline Phosphatase 98 U/L (40-110); Bilirubin, Direct 0.4 mg/dL (0.1-0.3); Bilirubin, Total 0.6 mg/dL (0.2-1.2)
[2023-04-11] MEDS ORDERED: Fentanyl 250 MCG/5 ML VIAL ONE (06:30)
[2023-04-11] MEDS ORDERED: Lidocaine 4% Topical Sol 50 ML BOT ONE (06:31)
[2023-04-11] MEDS ORDERED: Dexmedetomidine 200 MCG/2 ML VIAL ONE (06:31)
[2023-04-11] MEDS ORDERED: Albuterol HFA (OR) 200 PUFF INH ONE (06:31)
[2023-04-11] MEDS ORDERED: EPINEPHrine 1 MG/ML AMP ONE (06:52)
[2023-04-11] MEDS ORDERED: Bupivacaine 0.25% HCL 30 ML VIAL ONE (06:52)
[2023-04-11] MEDS ORDERED: Lidocaine 1% PF 5 ML VIAL ONE (07:29)
[2023-04-11] MEDS ORDERED: PROPOFOL 200 MG/20 ML VIAL ONE (07:29)
[2023-04-11] MEDS ORDERED: Ketorolac Tromethamine 30 MG/ML VIAL ONE (07:29)
[2023-04-11] MEDS ORDERED: Rocuronium Bromide 10 MG/ML (10ML VIAL) ONE (07:29)
[2023-04-11] MEDS ORDERED: NEOSTIGMINE 3 MG/3 ML SYR 3 MG/3 ML SYRINGE ONE (07:29)
[2023-04-11] MEDS ORDERED: Dexamethasone 20 MG/5 ML VIAL ONE (07:29)
[2023-04-11] MEDS ORDERED: Glycopyrrolate 0.2 MG/ML 5 ML SYRINGE ONE (07:29)
[2023-04-11] MEDS ORDERED: Ondansetron PF 4 MG/2 ML Vial ONE (07:29)
[2023-04-11] MEDS ORDERED: dilTIAZem CD 180 MG CAP PO SCH (09:00)
[2023-04-11] MEDS ORDERED: Flecainide Acetate 100 MG TAB PO SCH (09:00)
[2023-04-11] MEDS ORDERED: Ondansetron PF 4 MG/2 ML Vial IVP PRN (09:10)
[2023-04-11] MEDS ORDERED: Ipratropium/Albuterol 3 ML NEB NEB PRN (09:10)
[2023-04-11] MEDS ORDERED: Mag-Al 1200 mg/1200 mg/30 ML UDCUP PO PRN (09:10)
[2023-04-11] MEDS ORDERED: Calcium Carbonate 500 MG ChewTAB PO PRN (09:10)
[2023-04-11] MEDS ORDERED: Acetaminophen/Codeine 30-300mg Tablet PO PRN (09:12)
[2023-04-11] MEDS: Famotidine/PF 20 mg/2ml Vial SLOW IVP SCH (10:33)
[2023-04-11 14:29] VITALS: BP 149/75; TEMP 97.8
== END 2023-04-11 15:10 | disposition home or self-care (01) ==
LOC: ERS 16:47 → SURG A 19:36
PROVIDERS: ADMIT Specialist; ATTEND Specialist
PROC: 0FT44ZZ Resection of Gallbladder, Percutaneous Endoscopic Approach (ICD-10-PCS; principal; 2023-04-11)
DX: K80.12 Calculus of gallbladder with acute and chronic cholecystitis without obstruction (principal); I10 Essential (primary) hypertension; I48.91 Unspecified atrial fibrillation; Z98.890 Other specified postprocedural states; Z90.710 Acquired absence of both cervix and uterus; Z88.8 Allergy status to other drugs, medicaments and biological substances; Z88.6 Allergy status to analgesic agent
CPT/HCPCS: 47562; 76705; 80048; 80053; 80076; 83690; 85025 ×2; 93005 ×2; 96361; 96365; 96375 ×2; 96376; 97116; 99285; C1889; G0378 ×3; 36415; 88304; 93010; J0171; J1100; J1885; J2272; J2405; J2543; J2704; J3010; J7050; S0020; S0028

== ENCOUNTER 2023-05-01 08:34 | Outpatient (CLI) | payer MEDICARE, OTHER | END 2023-05-01 08:35 | disposition home or self-care (01) | LOC: MRI 08:34 | PROVIDERS: ATTEND Family Medicine | DX: S22.070G Wedge compression fracture of T9-T10 vertebra, subsequent encounter for fracture with delayed healing (principal); M48.04 Spinal stenosis, thoracic region; R60.9 Edema, unspecified | CPT/HCPCS: 72146 ==